=== PATIENT | female | born 1975 | race Caucasian/White ===

== ENCOUNTER 2016-07-16 16:39 | Observation (INO) | payer MEDICARE, OTHER ==
[2016-07-16] MEDS ORDERED: 0.9 % SODIUM CHLORIDE 1,000 ML IV ONE (16:52)
[2016-07-16] MEDS ORDERED: PROMETHAZINE HCL 25 MG in 0.9 % SODIUM CHLORIDE 50 ML IV ONE (16:53)
[2016-07-16] MEDS ORDERED: PROMETHAZINE HCL 25 MG/ML VIAL ONE (17:08)
[2016-07-16 17:09] LABS: BASOPHILS % 0.2 (0.0-1.5); EOSINOPHILS % 0.7 % (0.0-6.8); LYMPHOCYTES # 2.2 # k/uL (0.6-4.0); MEAN CORPUSCULAR HEMOGLOBIN 29.1 pg (28.0-34.0); MONOCYTES # 0.5 # k/uL (0.0-0.9); MONOCYTES % 3.3 % (0.0-11.0); NEUTROPHILS # 12.7 # k/uL (1.4-7.7)
[2016-07-16 17:26] LABS: eGFR (African) > 60; eGFR (Non-African) > 60
[2016-07-16] MEDS ORDERED: POTASSIUM CHLORIDE 20 MEQ/10ML VIAL IV ONE (17:33)
--- NOTE | 2016-07-16 17:38 | ED Physician Documentation ---
Nausea/Vomiting/Diarrhea - HISTORIAN Historian: patient - HPI Stated Complaint: Vomiting Chief Complaint: Nausea,Vomiting,Diarrhea Additional Information: 40 yo F here for nausea and vomiting. States has cyclic vomiting and has not been able to keep anything down for 3 days. Has had chills but no fever. States she always gets epigastric abdominal pain with these episodes that coincides with onset of vomiting. Similar pain now. States the only way to cure her nausea is control her pain and requests dilaudid. Normal BM. Decreased UOP. Has been using zofran and phenergan at home with no relief. Emesis NBNB. All other systems reviewed and negative except per HPI. - Associated Symptoms Vomiting: frequent Abdominal Pain: cramping, epigastric - ROS CONST: chills CVS/RESP: denies: shortness of breath, cough GI/: other (nausea and vomiting). denies: black stools, bloody urine, bloody stools, dark urine, problems urinating EYES/ENT: none NEURO/PSYCH: none - PAST HX Past History: other (cyclic vomiting syndrome) Surgeries/Procedures: none Allergies/Adverse Reactions: Allergies Allergy/AdvReac Type Severity Reaction Status Date / Time procaine HCl [From Novocain] Allergy Verified 07/16/16 16:50 chlorpromazine HCl AdvReac Intermediate Tremors Verified 01/31/16 17:37 [From Thorazine] levofloxacin [From Levaquin] AdvReac Intermediate Nausea/Vomi Verified 01/31/16 17:37 ting promethazine HCl AdvReac Weakness Verified 01/31/16 17:37 [From Phenergan] Home Medications: Ambulatory Orders Medication Instructions Recorded Medroxyprogesterone Acetate 150 mg IM 1T #1 vi 06/13/13 [Depo-Provera] Venlafaxine HCl [Effexor Xr] 37.5 mg PO DAILY av 06/14/13 Dronabinol [Marinol] 10 mg PO D 04/23/14 Ondansetron HCl Rapdis [Zofran Odt] 8 mg PO Q6 PRN 04/23/14 Prochlorperazine Maleate 10 mg PO Q6 PRN 04/23/14 [Compazine] - SOCIAL HX Smoking History: greater than 1 pack/day Alcohol Use: none Drug Use: none - FAMILY HX Family History: none - VITAL SIGNS Vital Signs: Vital Signs Temp Pulse Resp BP Pulse Ox 105 H 20 110/74 95 07/16/16 16:40 07/16/16 16:40 07/16/16 16:40 07/16/16 16:40 - REVIEWED ASSESSMENTS Nursing Assessment Reviewed: Yes Vitals Reviewed: Yes ED Results Lab/Radiology - Lab Results Lab Results: Lab Results 07/16/16 17:05 WBC 15.70 K/ul H K/ul (4.00-12.00) RBC 4.02 M/ul M/ul (3.90-5.20) Hgb 11.7 g/dL L g/dL (12.0-16.0) Hct 35.5 % % (34.5-46.5) MCV 88.3 fl fl (80.0-100.0) MCH 29.1 pg pg (28.0-34.0) MCHC 32.9 g/dL g/dL (30.0-36.0) RDW 14.4 % H % (11.3-14.3) Plt Count 187 K/mm3 K/mm3 (130-400) Neut % (Auto) 80.7 % H % (39.0-79.0) Lymph % (Auto) 13.9 % L % (16.0-50.0) Emmet % (Auto) 3.3 % % (0.0-11.0) Eos % (Auto) 0.7 % % (0.0-6.8) Baso % (Auto) 0.2 (0.0-1.5) Neut # 12.7 # k/uL H # k/uL (1.4-7.7) Lymph # 2.2 # k/uL # k/uL (0.6-4.0) Emmet # 0.5 # k/uL # k/uL (0.0-0.9) Eos # 0.1 # k/uL # k/uL (0.0-0.6) Baso # 0.0 # k/uL # k/uL (0.0-0.5) Reactive Lymphs % 1.1 % % (0.0-5.0) Reactive Lymphs # 0.2 # k/uL # k/uL (0.0-0.8) - Orders Orders: ED Orders Category Date Time Status IV [Place Saline Lock/IV] Now Care 07/16/16 16:52 Active CBC/PLATELET/DIFF Stat Lab 07/16/16 17:05 Completed CMP [CMP] Routine Lab 07/16/16 17:05 Received 0.9 % Sodium Chloride [Normal Saline] 1,000 ml Med 07/16/16 16:52 Active IV Q1H Promethazine HCl [Phenergan] Med 07/16/16 17:08 Discontinued 25 mg .ROUTE .STK-MED ONE Promethazine HCl [Phenergan] 25 mg Med 07/16/16 16:53 Discontinued 0.9 % Sodium Chloride [Sodium Chloride] 50 ml IV NOW EKG WITH COMPARISON Stat Ther 07/16/16 Ordered Nausea Physical Exam - EXAM General Appearance: no acute distress EENT: ENT inspection normal, dry mucous membranes Neck: normal inspection. No: lymphadenopathy Respiratory: no resp distress, chest non-tender, breath sounds normal CVS: heart sounds normal, no murmur, tachycardia Abdomen: no organomegaly, tenderness (epigastric ), other (no rebound or guarding) Skin: warm/dry, normal color Neuro/Psych: oriented X3 Discharge Clincal Impression: Vomiting, Hypokalemia Home Medications: Ambulatory Orders Medroxyprogesterone Acetate [Depo-Provera] 150 mg IM 1T #1 vi 06/13/13 Venlafaxine HCl [Effexor Xr] 37.5 mg PO DAILY av 06/14/13 Dronabinol [Marinol] 10 mg PO D 04/23/14 Ondansetron HCl Rapdis [Zofran Odt] 8 mg PO Q6 PRN 04/23/14 Prochlorperazine Maleate [Compazine] 10 mg PO Q6 PRN 04/23/14 Comments: Patient hemodynamically stable. Given K in ED. Admitted in stable condition. Condition: Good Disposition: ADMITTED INPATIENT Decision to Admit: [id number] Date of Decison to Admit: 07/16/16 Decision Time: 17:43
[2016-07-16] MEDS ORDERED: POTASSIUM CHLORIDE 40 MEQ/NS 1,000 ML IV ONE ×2 (17:44→22:35)
[2016-07-16] MEDS ORDERED: ENOXAPARIN SODIUM 30 MG/0.3 ML DISP.SYRIN SQ SCH (18:00)
[2016-07-16] MEDS: POTASSIUM CHLORIDE 40 MEQ/NS 1,000 ML IV SCH ×2 (18:15→22:30)
[2016-07-16] MEDS ORDERED: ONDANSETRON HCL/PF 4 MG/ 2ML VIAL IVP PRN (18:41)
--- NOTE | 2016-07-16 18:41 | History and Physical Report ---
History of Present Illnes - History of Present Illness Reason for Visit: Vomiting History of Present Illness: Patient of Dr. Reyes's presents to ER for cyclic vomiting episode. Had stressful episode this past weekend that started this episode. Had been doing very well for the past 2 years. Traditionally requires IV pain meds for abdominal pain to get cycle under control. Dr. Reyes saw her earlier this week and put her on phenergan, ativan, and stadol. She improved some until today began getting worse again. Vomited just before arrival to the ER. K+ noted to be low. - Past Medical History Gastrointestinal: Other (cyclic vomiting) Psych: Anxiety - Past Surgical History Past Surgical History: Cholecystectomy, Other (Jaw surgery) - Past Family History Mother Family History: Cancer (Breast), (60) - Past Social History Smoke: 1 pack per day Alcohol: Occassional (However told nursing it was daily.) Drugs: Marijuana (Denied to me but admitted to nursing) Lives: With Family (S.O. and 10 y.o. daughter), Other (Trying to get ) Domestic Violence: Negative - Health Maintenance Health Maintenance: Pap Smear Influenza Vaccine: No Pneumonia Vaccine: No Resuscitation Status: full Review of Systems - Review of Systems Constitutional: Weakness. negative: Fever Eyes: negative: pain ENT: negative: Ear Pain, Nose Discharge Respiratory: negative: Cough, Shortness of Breath Cardiovascular: negative: Chest Pain Gastrointestinal: Nausea, Vomiting, Abdominal Pain. negative: Diarrhea, Constipation Genitourinary: negative: Dysuria Musculoskeletal: negative: Neck Pain Skin: negative: Rash Neurological: Weakness - Medications/Allergies Allergies/Adverse Reactions: Allergies Allergy/AdvReac Type Severity Reaction Status Date / Time procaine HCl [From Novocain] Allergy Verified 07/16/16 16:50 chlorpromazine HCl AdvReac Intermediate Tremors Verified 01/31/16 17:37 [From Thorazine] levofloxacin [From Levaquin] AdvReac Intermediate Nausea/Vomi Verified 01/31/16 17:37 ting promethazine HCl AdvReac Weakness Verified 01/31/16 17:37 [From Phenergan] Home Medications: Home Medications Lansoprazole [Prevacid] 30 mg PO DAILY 07/16/16 Current Inpatient Medications: Current Inpatient Medications Enoxaparin Sodium (Lovenox) 30 mg SQ QD JOYCE Stop: 07/29/16 18:01 Potassium Chloride/Sodium Chloride (Potassium 40 Meq/Ns 1000 Ml) 1,000 mls @ 250 mls/hr IV Q8H JOYCE Last Admin: 07/16/16 18:15 Dose: 250 mls/hr Exam - Exam General: Alert, Oriented to Person, Oriented to Place, Oriented to Time, Cooperative HEENT: Atraumatic, PERRLA, EOMI. No: Mouth Mucous membr. moist/[place] Neck: Normal Range of Motion Lungs: Clear to auscultation, Normal air movement, Speaks full Sentences Cardiovascular: Regular rate Abdomen: Normal bowel sounds, Soft. No: No tenderness (mild) Integumentary: Normal Extremities: No edema Neurological: Generalized Weakness Psych/Mental Status: Mental status NL, Mood NL, Appropriate Affect, Intact Judgment Assessment/Plan - Assessment/Plan (1) Cyclical vomiting Status: Acute Current Visit: Yes Qualifiers: Vomiting Intractability: non-intractable Nausea presence: with nausea Qualified Code(s): G43.A0 - Cyclical vomiting, not intractable Plan: Will admit for IVF, anti-emetics, and IV pain meds if needed. Lovenox for DVT prevention. (2) Anxiety Status: Chronic Current Visit: No (3) Hypokalemia Status: Acute Current Visit: Yes Plan: Replace IV. Monitor. VTE Assessment - RISK FACTOR SCORE VTE RISK FACTOR SCORES: ANTICIPATED BED CONFINEMENT OR IMMOBILIZATION > 24 HOURS - RISK VTE LOW RISK: SCORE OF 1 OR LESS (RISK PROXIMAL DVT 0.4%) NO PROPHYLAXIS NEEDED
[2016-07-16] MEDS ORDERED: ENOXAPARIN SODIUM 30 MG/0.3 ML DISP.SYRIN SQ ONE (19:49)
[2016-07-16] MEDS ORDERED: PANTOPRAZOLE SODIUM 40 MG in 0.9 % SODIUM CHLORIDE 50 ML IV SCH (21:00)
[2016-07-16] MEDS ORDERED: PANTOPRAZOLE SODIUM INJ. 40 MG VIAL ONE (21:07)
[2016-07-16] MEDS ORDERED: 0.9 % SODIUM CHLORIDE 50 ML IV ONE (21:07)
[2016-07-16] MEDS ORDERED: SALINE FLUSH 10 ML DISP.SYRIN IVF ONE (21:09)
[2016-07-16 21:53] VITALS: BMI 26.6
[2016-07-16] MEDS ORDERED: HYDROmorphone HCL/PF 2 MG/ML DISP.SYRIN ONE ×2 (22:01→23:08)
[2016-07-16] MEDS: HYDROmorphone HCL/PF 2 MG/ML DISP.SYRIN IVP PRN (22:05)
[2016-07-16] MEDS ORDERED: LORazepam 2 MG/ML VIAL IVP ONE (23:05)
[2016-07-16] MEDS ORDERED: HYDROmorphone HCL/PF 1 MG/ML DISP.SYRIN IVP ONE (23:06)
[2016-07-16] MEDS ORDERED: LORazepam 2 MG/ML VIAL ONE (23:08)
[2016-07-17] MEDS ORDERED: POTASSIUM CHLORIDE 40 MEQ/NS 1,000 ML IV ONE (02:32)
[2016-07-17] MEDS: POTASSIUM CHLORIDE 40 MEQ/NS 1,000 ML IV SCH (02:35)
[2016-07-17] MEDS ORDERED: PANTOPRAZOLE SODIUM INJ. 40 MG VIAL ONE (04:17)
[2016-07-17] MEDS ORDERED: 0.9 % SODIUM CHLORIDE 0 ML IV ONE (04:17)
[2016-07-17] MEDS ORDERED: HYDROmorphone HCL/PF 2 MG/ML DISP.SYRIN ONE (05:13)
[2016-07-17] MEDS ORDERED: SALINE FLUSH 10 ML DISP.SYRIN IVF ONE (05:14)
[2016-07-17] MEDS: HYDROmorphone HCL/PF 2 MG/ML DISP.SYRIN IVP PRN (05:20)
[2016-07-17 05:39] VITALS: BP 114/59
--- NOTE | 2016-07-17 08:14 | Discharge Summary ---
Discharge Summary - Discharge Sumary History of Present Illness: Patient of Dr. Reyes's presents to ER for cyclic vomiting episode. Had stressful episode this past weekend that started this episode. Had been doing very well for the past 2 years. Traditionally requires IV pain meds for abdominal pain to get cycle under control. Dr. Reyes saw her earlier this week and put her on phenergan, ativan, and stadol. She improved some until today began getting worse again. Vomited just before arrival to the ER. K+ noted to be low. Condition at Discharge: Stable Home Medications: Ambulatory Orders Medication Instructions Recorded Lansoprazole [Prevacid] 30 mg PO DAILY 07/16/16 Consultations this Visit: None Procedures this Visit: None Allergies/Adverse Reactions: Allergies Allergy/AdvReac Type Severity Reaction Status Date / Time procaine HCl [From Novocain] Allergy Verified 07/16/16 16:50 chlorpromazine HCl AdvReac Intermediate Tremors Verified 01/31/16 17:37 [From Thorazine] levofloxacin [From Levaquin] AdvReac Intermediate Nausea/Vomi Verified 01/31/16 17:37 ting promethazine HCl AdvReac Weakness Verified 01/31/16 17:37 [From Phenergan] Discharge Summary: Patient was admitted for cyclic vomiting and resulting hypokalemia and abdominal pain. She was treated with IVF, IV K+, IV ativan, IV zofran, and IV dilaudid. She was very noncompliant and snuck out of the hospital to smoke on 2 occasions despite being asked not to. She was demanding of pain meds and wanted more within 15 min of getting her dose. She told me she did not do drugs and only drank occasionally but told nursing she drank daily and smoked marijuana daily. She announced twice she was leaving AMA before she finally did so. I called Dr. Reyes and made her aware of this as well as the fact I wouldn't admit her again. Hospital Course: Discharge Dx: Cyclic vomiting. Hypokalemia. anxiety. dispostition - home
== END 2016-07-17 06:12 | disposition left against medical advice (07) ==
LOC: ED 16:39 → INTOOBSV 18:33 → SOUTH 18:33
PROVIDERS: ADMIT Family Medicine; ATTEND Family Medicine
DX: G43.A1 Cyclical vomiting, in migraine, intractable (principal); E86.0 Dehydration; E87.6 Hypokalemia
CPT/HCPCS: 80053; 84703; 85025; 93005; G0378; J1170; J1650; J2060; J2550; J3480; J7030; 96361; 96374; 96375; 96376; 99283; 99284; G0379

== ENCOUNTER 2017-02-21 08:21 | Emergency (ER) | payer MEDICARE, OTHER ==
--- NOTE | 2017-02-21 08:24 | ED Physician Documentation ---
Sore Throat/Dental Pain - HISTORIAN Historian: patient - HPI Stated Complaint: dental pain Chief Complaint: Dental Pain Onset: other (1 month ) Context: Fractured Tooth Associated Symptoms: moderate. 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 ) Other History: other (none) Immunizations: other - SOCIAL HX Smoking History: cigarettes Alcohol Use: none Drug Use: none - FAMILY HX Family History: Yes - VITAL SIGNS Vital Signs: Vital Signs Temp Pulse Resp BP Pulse Ox 114/59 07/17/16 05:38 - REVIEWED ASSESSMENTS Nursing Assessment Reviewed: Yes Vitals Reviewed: Yes <Patrica Ruiz - Last Filed: 02/21/17 08:43> - VITAL SIGNS Vital Signs: Vital Signs Temp Pulse Resp BP Pulse Ox 98.4 F 94 H 19 139/89 99 02/21/17 08:45 02/21/17 08:45 02/21/17 08:45 02/21/17 08:45 02/21/17 08:45 <Dk Quiles - Last Filed: 02/21/17 14:42> - PAST HX Allergies/Adverse Reactions: Allergies Allergy/AdvReac Type Severity Reaction Status Date / Time procaine HCl [From Novocain] Allergy Verified 02/21/17 08:29 chlorpromazine HCl AdvReac Intermediate Tremors Verified 02/21/17 08:29 [From Thorazine] levofloxacin [From Levaquin] AdvReac Intermediate Nausea/Vomi Verified 02/21/17 08:29 ting promethazine HCl AdvReac Weakness Verified 02/21/17 08:29 [From Phenergan] Home Medications: Ambulatory Orders Medication Instructions Recorded Lansoprazole [Prevacid] 30 mg PO DAILY 07/16/16 Amoxicillin [Trimox] 500 mg PO TID #30 capsule 02/21/17 Progress - Progress Progress: Discussed patient with nurse practioner and agree with assessment and treatment plan. <Dk Quiles - Last Filed: 02/21/17 14:42> Dental Pain Physical Exam - EXAM General Appearance: no acute distress Head/Neck: other (right side of face with mild edema no redness ) Mouth/Throat: lips nml, gums nml, pharynx nml, voice nml, no drooling, gum swelling around teeth, widespread dental decay Respiratory: no resp. distress CVS: reg. rate & rhythm, heart sounds nml Abdomen: soft, no organomegaly, normal bowel sounds Extremities: non-tender Skin: warm/dry Neuro/Psych: No: anxiety, depression <Patrica Ruiz - Last Filed: 02/21/17 08:43> Discharge Decision to Admit: NO Date of Decison to Admit: 02/21/17 Decision Time: 08:40 <Patrica Ruiz - Last Filed: 02/21/17 08:43> <Dk Quiles - Last Filed: 02/21/17 14:42> Clincal Impression: Dental abscess Prescriptions: Amoxicillin [Trimox] 500 mg PO TID #30 capsule Referrals: Maci Reyes MD [Primary Care Provider] - 2 Days Condition: Stable Disposition: 01 HOME, SELF-CARE
[2017-02-21 08:34] VITALS: BP 139/89
== END 2017-02-21 08:45 | disposition home or self-care (01) ==
LOC: ED 08:21
DX: K04.7 Periapical abscess without sinus (principal)
CPT/HCPCS: 99283

== ENCOUNTER 2017-02-21 18:36 | Emergency (ER) | payer MEDICARE, OTHER ==
--- NOTE | 2017-02-21 18:52 | ED Physician Documentation ---
Sore Throat/Dental Pain - HISTORIAN Historian: patient - HPI Chief Complaint: Dental Pain Onset: other (1 month) Context: Dental Caries Further Comments: yes (Has been havign some pain associated with atooth on the right upper gum area, Has been taking advil and/or tylenol, using some ambusol. Has seen a dentist and has been referred to oral surgeon. Has seen oral surgeon but can not afford to get tooth pulled. Has Medicare health insurance. No fever or chills. Was seen earlier today and was started on Amoxil which she has started.) - ROS CONST: no problems - PAST HX Past History: other (cyclic vomiting syndrome) Allergies/Adverse Reactions: Allergies Allergy/AdvReac Type Severity Reaction Status Date / Time procaine HCl [From Novocain] Allergy Verified 02/21/17 08:29 chlorpromazine HCl AdvReac Intermediate Tremors Verified 02/21/17 08:29 [From Thorazine] levofloxacin [From Levaquin] AdvReac Intermediate Nausea/Vomi Verified 02/21/17 08:29 ting promethazine HCl AdvReac Weakness Verified 02/21/17 08:29 [From Phenergan] Home Medications: Ambulatory Orders Medication Instructions Recorded Lansoprazole [Prevacid] 30 mg PO DAILY 07/16/16 Amoxicillin [Trimox] 500 mg PO TID #30 capsule 02/21/17 - SOCIAL HX Smoking History: less than 1 pack/day (1/2 ppd) Alcohol Use: rarely Drug Use: none - FAMILY HX Family History: No - VITAL SIGNS Vital Signs: Vital Signs Temp Pulse Resp BP Pulse Ox 139/89 02/21/17 08:45 - REVIEWED ASSESSMENTS Nursing Assessment Reviewed: Yes Vitals Reviewed: Yes Dental Pain Physical Exam - EXAM General Appearance: alert, moderate distress Eyes: eyes nml inspection Mouth/Throat: lips nml, gums nml, pharynx nml, voice nml, no drooling, no air way problems, dental tenderness, gum swelling around teeth, other (broken right upper molar) Ear/Nose: nml inspection Respiratory: no resp. distress, breath sounds nml, respiratory distress CVS: reg. rate & rhythm, heart sounds nml, murmur Skin: warm/dry, normal color Neuro/Psych: other (normal) Discharge Clincal Impression: Pain, dental Referrals: Maci Reyes MD [Primary Care Provider] - 2 Days Additional Instructions: Take amoxillin as directed, take Aleve 220mg 2 tablets twice a day. Take tramadol as needed for severe pain. Follow-up with your primary care provider for further pain management. Condition: Stable Disposition: 01 HOME, SELF-CARE Decision to Admit: NO Date of Decison to Admit: 02/21/17 Decision Time: 19:16
[2017-02-21] MEDS ORDERED: KETOROLAC TROMETHAMINE 60 MG/2 ML VIAL IM ONE (19:01)
[2017-02-21] MEDS ORDERED: traMADol HCL 50 MG TABLET PO PRN ×2 (19:04→19:10)
[2017-02-21] MEDS ORDERED: traMADol HCL 50 MG TABLET ONE (19:10)
[2017-02-21 19:30] VITALS: BP 138/79
== END 2017-02-21 19:19 | disposition home or self-care (01) ==
LOC: ED 18:36
DX: K08.89 Other specified disorders of teeth and supporting structures (principal)
CPT/HCPCS: 96372; 99283; J1885

== ENCOUNTER 2017-02-22 22:18 | Emergency (ER) | payer MEDICARE, OTHER ==
[2017-02-22] MEDS ORDERED: KETOROLAC TROMETHAMINE 60 MG/2 ML VIAL ONE (22:52)
[2017-02-22] MEDS ORDERED: KETOROLAC TROMETHAMINE 60 MG/2 ML VIAL IM ONE (22:55)
--- NOTE | 2017-02-22 23:10 | ED Physician Documentation ---
Sore Throat/Dental Pain - HISTORIAN Historian: patient - HPI Stated Complaint: dental pain Chief Complaint: Dental Pain Additional Information: dental pain tooth3 fx in july onset pain recently. here two times yesterday saw DR AGUIAR. she says she will see pcp tomorrow Onset: days ago (5) Context: Fractured Tooth Associated Symptoms: other (pain past two - three days) - ROS CONST: no problems CVS/RESP: none GI/: denies: nausea, vomiting NEURO/PSYCH: none - PAST HX Past History: other (cyclic vomiting syndrome-in remission past 3 yrs) Allergies/Adverse Reactions: Allergies Allergy/AdvReac Type Severity Reaction Status Date / Time procaine HCl [From Novocain] Allergy Verified 02/22/17 22:26 chlorpromazine HCl AdvReac Intermediate Tremors Verified 02/22/17 22:26 [From Thorazine] levofloxacin [From Levaquin] AdvReac Intermediate Nausea/Vomi Verified 02/22/17 22:26 ting promethazine HCl AdvReac Weakness Verified 02/22/17 22:26 [From Phenergan] Home Medications: Ambulatory Orders Medication Instructions Recorded Lansoprazole [Prevacid] 30 mg PO DAILY 07/16/16 Amoxicillin [Trimox] 500 mg PO TID #30 capsule 02/21/17 - SOCIAL HX Smoking History: less than 1 pack/day Alcohol Use: rarely Drug Use: none - FAMILY HX Family History: No - VITAL SIGNS Vital Signs: Vital Signs Temp Pulse Resp BP Pulse Ox 97.2 F L 102 H 18 155/100 97 02/22/17 22:20 02/22/17 22:20 02/22/17 22:20 02/22/17 22:20 02/22/17 22:20 - REVIEWED ASSESSMENTS Nursing Assessment Reviewed: Yes Vitals Reviewed: Yes ED Results Lab/Radiology - Orders Orders: ED Orders Category Date Time Status Ketorolac Tromethamine [Toradol] Med 02/22/17 22:52 Discontinued 60 mg .ROUTE .STK-MED ONE Ketorolac Tromethamine [Toradol] Med 02/22/17 22:55 Discontinued 60 mg IM NOW ONE Dental Pain Physical Exam - EXAM General Appearance: mild distress Head/Neck: head nml inspection Eyes: eyes nml inspection Mouth/Throat: No: gums nml (has fx tooth 3 rest teeth appear good) Ear/Nose: No: TM erythema Respiratory: no resp. distress, breath sounds nml CVS: reg. rate & rhythm, heart sounds nml Abdomen: soft, non-tender Skin: warm/dry, normal color. No: cyanosis, diaphoresis, jaundice Neuro/Psych: No: weakness, numbness Discharge Clincal Impression: dental pain fx tooth 3 Referrals: Maci Reyes MD [Primary Care Provider] - 2 Days Comments: will see pcp tomorrow Condition: Fair Disposition: 01 HOME, SELF-CARE Decision to Admit: NO Decision Time: 23:14
[2017-02-22 23:35] VITALS: BP 131/90
== END 2017-02-22 23:20 | disposition home or self-care (01) ==
LOC: ED 22:18
DX: S02.5XXA Fracture of tooth (traumatic), initial encounter for closed fracture (principal); X58.XXXA Exposure to other specified factors, initial encounter; Y93.9 Activity, unspecified; Y99.9 Unspecified external cause status
CPT/HCPCS: 96372; 99283; J1885